=== PATIENT | male | born 1965 | race Caucasian/White ===

== ENCOUNTER 2017-03-01 09:25 | Emergency (ER) | payer MEDICARE ==
[2017-03-01 10:22] LABS: BLOOD UREA NITROGEN 14 mg/dL (7-18); CALCIUM 9.3 mg/dL (8.7-10.7); CARBON DIOXIDE 27 mmol/L (21-32); CREATININE 0.9 mg/dL (0.6-1.3); GLUCOSE,RANDOM 142 mg/dL (70-99); POTASSIUM 4.4 mmol/L (3.5-5.1); SODIUM 142 mmol/L (136-145); URIC ACID 5.7 mg/dL (3.5-7.2)
== END 2017-03-01 10:58 | disposition home or self-care (01) ==
LOC: ER 09:25
PROVIDERS: General Practice
DX: G62.9 Polyneuropathy, unspecified (principal); M67.441 Ganglion, right hand; M79.641 Pain in right hand; Z79.899 Other long term (current) drug therapy; Z79.1 Long term (current) use of non-steroidal anti-inflammatories (NSAID); Z79.82 Long term (current) use of aspirin
CPT/HCPCS: 36415; 73130; 80048; 84550; 99070; 99283